=== PATIENT | female | born 1960 | race Caucasian/White ===

== ENCOUNTER → 2024-06-10 08:07 | Outpatient (REF) | payer OTHER, SELFPAY | LOC: RCS 08:07 | PROVIDERS: ATTENDING PHYSICIAN Internal Medicine Cardiovascular Disease; FAMILY PHYSICIAN Internal Medicine Geriatric Medicine | DX: R06.09 Other forms of dyspnea (principal) | CPT/HCPCS: 93306; 93356 ==